=== PATIENT | male | born 1985 | race African-American/Black ===

== ENCOUNTER 2023-09-08 12:20 | Emergency (ER) | payer SELFPAY ==
[2023-09-08] VITALS (11 sets, daily range): BP systolic 164–213; BP diastolic 107–133; PULSE 51–61; RESP 14–18; TEMP 36.8; O2SAT 92–98; BMI 32.1
--- NOTE | 2023-09-08 12:27 | XRR_ITS ---
PROCEDURE INFORMATION: Exam: XR Chest Exam date and time: 09/08/2023 12:34 PM Age: 38 years old Clinical indication: Pain; Angina pectoris; Additional info: Cp TECHNIQUE: Imaging protocol: Radiologic exam of the chest. Views: 1 view. COMPARISON: No relevant prior studies available. FINDINGS: Lungs: Unremarkable. No consolidation. Pleural spaces: Unremarkable. No pleural effusion. No pneumothorax. Heart/Mediastinum: Unremarkable. No cardiomegaly. Bones/joints: Unremarkable. XR/XR chest 1V portable [id number] IMPRESSION: No acute findings.
--- NOTE | 2023-09-08 12:28 | ECG_ITS ---
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 Measurements Intervals [place] Rate: 62 P: 64 ID: 160 QRS: 25 QRSD: 95 T: 30 QT: 386 QTc: 392 Interpretive Statements SINUS RHYTHM WITH SINUS ARRHYTHMIA MINIMAL ST DEPRESSION [0.025+ mV ST DEPRESSION] No previous ECG available for comparison Electronically Signed On 09-09-2023 6:26:39 CDT by Vita Silva M.D. [id number] f
--- NOTE | 2023-09-08 13:17 | ED_ITS ---
HPI - Chest Pain 2 General: Chief Complaint: Chest Pain Stated Complaint: too many energy drinks, chest pain Time Seen by Provider: 09/08/23 12:51 History of Present Illness: 38-year-old -[place] man who pre sents the emergency room with chest pain that started about 5 AM this morning. He says he took a couple of 5-hour energy drinks and then shortly after this started. He says he does not take any medications for blood pressure and he is quite hypertensive on presentation. He says the pain is a pressure that goes into his left armpit and shoulder. No cough. No lower extremity swelling. No calf pain. No shortness of breath. No altered mental status. No focal motor deficits. No headache. No abdominal pain. Review of Systems 2 Narrative: Constitutional symptoms: Negative except as documented in HPI. Skin symptoms: Negative except as documented in HPI. Eye symptoms: Negative except as documented in HPI. ENMT symptoms: Negative except as documented in HPI. Respiratory symptoms: Negative except as documented in HPI. Cardiovascular symptoms: Negative except as documented in HPI. Gastrointestinal symptoms: Negative except as documented in HPI. Genitourinary symptoms: Negative except as documented in HPI. Musculoskeletal symptoms: Negative except as documented in HPI. Neurologic symptoms: Negative except as documented in HPI. Psychiatric symptoms: Negative except as documented in HPI. Endocrine symptoms: Negative except as documented in HPI. Physical Exam 2 Narrative: EXAM NARRATIVE: General: Alert, no acute distress. Skin: Warm, dry. Head: Normocephalic, atraumatic. Neck: Supple, trachea midline. Eye: Extraocular movements are intact. Ears, nose, mouth and throat: mucosa moist. Cardiovascular: Regular, Normal peripheral perfusion. Respiratory: Lungs are clear to auscultation, respirations are non-labored, breath sounds are equal, Symmetrical chest wall expansion. Gastrointestinal: Soft, Nontender, Non distended Musculoskeletal: Normal ROM, no deformity. Neurological: Alert and oriented, No focal neurological deficit observed. Psychiatric: Cooperative, appropriate mood & affect. Course 2 Vital Signs: Vital signs: Vital Signs Temperature 98.2 F 09/08/23 12:24 Pulse Rate 53 L 09/08/23 14:00 Respiratory Rate 17 09/08/23 14:00 Blood Pressure 167/117 09/08/23 14:00 Pulse Oximetry 94 09/08/23 14:00 Oxygen Delivery Me thod Room Air 09/08/23 14:00 MDM - Chest Pain Medical Decision Making Differential diagnosis for patient with chest pain includes but is not limited to and based on the above HPI, review of systems and physical exam: Pneumonia. unstable angina. angina. Acute coronary syndrome / SC. Pulmonary embolism. Costochondritis / musculoskeletal. Pleurisy. Pericarditis. Esophageal spasm. Pancreatis. Cholecystitis. Orders placed to evaluate differential diagnosis based on the above differential, HPI and physical exam EKG: Time 1223. Rate 62. Normal sinus rhythm, No ST-T changes, no ectopy, normal MA & QRS intervals, This was reviewed and interpreted by myself the ER physician at 1225 Chest x-ray: No acute process. No infiltrate. No pneumothorax. This was reviewed and interpreted by myself the ER physician. Lab Review: Laboratory results were reviewed and interpreted by myself the emergency room physician. Lab work is unremarkable. No leukocytosis. No anemia. No renal failure. No elevation in his liver enzymes. Serial troponins are negative. HEART Pathway for Early Discharge in Acute Chest Pain from [email or web address] on 09/08/2023 All calculations should be rechecked by clinician prior to use RESULT SUMMARY: 2 points HEART Pathway Score Low risk 0.9-1.7% 30-day MACE Repeat troponin at 3 hours and if negative, discharge home with outpatient follow-up. INPUTS: History ?> 1 = Moderately suspicious EKG ?> 0 = Normal Age ?> 0 = <45 Risk factors ?> 1 = 1-2 risk factors Initial troponin ?> 0 = <=ormal limit I reviewed the patient's medical record. Reexamination: Patient remained stable. No increased work of breathing. No altered mental status. No focal motor deficits. Assessment and plan: Noncardiac chest pain Accelerated hypertension ?Clonidine for blood pressure here. Recommend he follow with his primary for blood pressure control. - Discharged home - Discussed findings and plan with patient. Answered any questions. - All laboratory values were reviewed and interpreted personally by myself, the ER physician - All imaging was reviewed and interpreted personally by myself, the ER physician. - Evaluation and treatment of this problem were appropriate in the emergency setting Lab Data 09/08/23 13:16 09/08/23 13:16 Radiology Impressions Chest X-Ray 09/08/23 12:27 IMPRESSION: No acute findings. Laboratory Results WBC 5.48 10^3/uL (3.29-11.43) 09/08/23 13:16 RBC 5.66 10^6/uL (3.85-5.65) H 09/08/23 13:16 Hgb 15.40 g/dL (11.27-16.99) 09/08/23 13:16 Hct 47.0 % (37-53) 09/08/23 13:16 MCV 83.0 fl (82-101) 09/08/23 13:16 MCH 27.2 pg (27-33) 09/08/23 13:16 MCHC 32.8 g/dL (30-55) 09/08/23 13:16 RDW 15.5 % (12.1-15.1) H 09/08/23 13:16 Plt Count 273 10^3/cmm (157-399) 09/08/23 13:16 MPV 10.3 fL (7.4-10.4) 09/08/23 13:16 Neut % (Auto) 43.7 % 09/08/23 13:16 Lymph % (Auto) 45.8 % 09/08/23 13:16 Caroline % (Auto) 8.0 % 09/08/23 13:16 Eos % (Auto) 1.6 % 09/08/23 13:16 Baso % (Auto) 0.7 % 09/08/23 13:16 Neut # (Auto) 2.39 10^3/uL (1.8-7.7) 09/08/23 13:16 Lymph # (Auto) 2.5 10^3/uL (0.8-4.8) 09/08/23 13:16 Caroline # (Auto) 0.4 10^3/uL (0.2-0.9) 09/08/23 13:16 Eos # (Auto) 0.1 10^3/uL (0.0-0.8) 09/08/23 13:16 Baso # (Auto) 0.0 10^3/uL (0.0-0.1) 09/08/23 13:16 Nucleated RBC % (auto) 0 % 09/08/23 13:16 Nucleated RBCs # 0.0 /100WBC 09/08/23 13:16 Sodium 142 mmol/L (136-145) 09/08/23 13:16 Potassium 4.1 mmol/L (3.5-5.1) 09/08/23 13:16 Chloride 108 mmol/L (98-107) H 09/08/23 13:16 Carbon Dioxide 22 mmol/L (22-29) 09/08/23 13:16 Anion Gap 16.1 (5-19) 09/08/23 13:16 BUN 7 mg/dL (6-20) 09/08/23 13:16 Creatinine 0.7 mg/dL (0.7-1.2) 09/08/23 13:16 GFR Calculation 151.9 mL/min (90-130) H 09/08/23 13:16 Glucose 95 mg/dL (65-115) 09/08/23 13:16 Calculated Osmolality 292 mOsm/kg (285-295) 09/08/23 13:16 Calcium 8.7 mg/dL (8.5-10.5) 09/08/23 13:16 Total Bilirubin 0.4 mg/dL (0.15-1.2) 09/08/23 13:16 AST 13 U/L (0-40) 09/08/23 13:16 ALT 14 U/L (0-41) 09/08/23 13:16 Alkaline Phosphatase 83 U/L (40-130) 09/08/23 13:16 Troponin T Baseline < 6 ng/L (0-15) 09/08/23 13:16 Troponin T 120 Minute 6.00 ng/L (0-15) 09/08/23 14:14 Delta Troponin T 0.78416 ABS# (0-10) 09/08/23 14:14 Total Protein 6.8 g/dL (6.6-8.7) 09/08/23 13:16 Albumin 4.1 g/dL (3.5-5.2) 09/08/23 13:16 Globulin 2.7 g/dL (1.3-4.6) 09/08/23 13:16 Lipase 19 U/L (13-60) 09/08/23 13:16 All radiology interpretation(s) finalized by discharge Discharge Plan Discharge Patient Disposition: Home Clinical Impression: Non-cardiac chest pain, Accelerated hypertension Condition: Stable Prescriptions: New clonidine HCl 0.1 mg tablet 0.1 mg PO Q8H PRN (Reason: hypertensive emergency) Qty: 20 0RF Rx Instructions: For Systolic >185 diastolic >100 Discharge Orders: Discharge ED (Routine); Ordered 09/08/23 Ordered By: Clair Carvalho Discharge Diet: Usual diet Discharge Activity: Resume usual activity Patient Instructions: Noncardiac Chest Pain (ED) Activity Restrictions/Additional Instructions: You need to keep track of your blood pressures and get follow-up with your primary care provider as you may need to be on blood pressure medications. Please refrain from energy drinks and caffeinated beverages. Thank you for choosing [facility] for your healthcare needs today. Please realize this is an emergency room and that we are providing you with a medical screening exam and this may not be complete and all inclusive of all the testing and or work up that you may need to determine your ailment or severity of your illness. You have been screened and evaluated and felt safe for discharge. Health conditions do change or evolve sometimes and as such it is important that you follow up with your Primary Doctor to be re checked, 3-5 days is a general good time frame for follow up. You are always welcome to return to the ED for re assessment if your symptoms are worsening or you have new concerns Coding Level of Care Code ED Health Screener for Aniyah Matthews
--- NOTE | 2023-09-08 13:32 | PC.NURSE ---
Pt told this nurse he does not want an IV unless absolutely necessary . MD notified.
[2023-09-08 13:41] LABS: Basophils % 0.7 %; Eosinophils # 0.1 10^3/uL (0.0-0.8); Eosinophils % 1.6 %; Lymphocytes # 2.5 10^3/uL (0.8-4.8); Lymphocytes % 45.8 %; Mean Corpuscular HGB Conc 32.8 g/dL (30-55); Mean Corpuscular Hemoglobin 27.2 pg (27-33); Mean Platelet Volume 10.3 fL (7.4-10.4); Monocytes # 0.4 10^3/uL (0.2-0.9); Neutrophils # 2.39 10^3/uL (1.8-7.7); Neutrophils % 43.7 %; Nucleated Red Blood Cells % 0 %; Platelet Count 273 10^3/cmm (157-399); Red Blood Count 5.66 10^6/uL (3.85-5.65); Red Cell Distribution Width 15.5 % (12.1-15.1); White Blood Count 5.48 10^3/uL (3.29-11.43)
[2023-09-08 13:58] LABS: Alanine Aminotransferase 14 U/L (0-41); Albumin Level 4.1 g/dL (3.5-5.2); Alkaline Phosphatase 83 U/L (40-130); Anion Gap 16.1 (5-19); Aspartate Amino Transferase 13 U/L (0-40); Blood Urea Nitrogen 7 mg/dL (6-20); Calcium 8.7 mg/dL (8.5-10.5); Carbon Dioxide 22 mmol/L (22-29); Chloride 108 mmol/L (98-107); Creatinine Clr Calc Pharmacy 174.1657; Globulin 2.7 g/dL (1.3-4.6); Glomerular Filtration Rate 151.9 mL/min (90-130); Glucose 95 mg/dL (65-115); Lipase 19 U/L (13-60); Osmolality Calculated 292 mOsm/kg (285-295); Potassium 4.1 mmol/L (3.5-5.1); Sodium 142 mmol/L (136-145); Total Bilirubin 0.4 mg/dL (0.15-1.2); Total Protein 6.8 g/dL (6.6-8.7)
[2023-09-08 13:59] LABS: Troponin(5th) Baseline < 6 ng/L (0-15)
--- NOTE | 2023-09-08 14:28 | ECG_ITS ---
[facility] Test Date: 2023-09-08 Pat Name: Eric Barfield Department: Room: Gender: Male Lead Technical Architect: : 1985 Requested By: Anna Marie Pearce Order Number: [id number] Anthony MD: Vita Silva M.D. Measurements Intervals [place] Rate: 52 P: 55 [place]: 139 QRS: 19 QRSD: 88 T: 10 QT: 390 QTc: 365 Interpretive Statements SINUS BRADYCARDIA POSSIBLE LEFT ATRIAL ENLARGEMENT [-0.1mV P-WAVE IN V1/V2] Compared to ECG 09/08/2023 12:23:43 Sinus rhythm no longer present Sinus arrhythmia no longer present ST (T wave) deviation no longer present Electronically Signed On 09-09-2023 6:36:52 CDT by Vita Silva M.D. [id number]
[2023-09-08 14:37] LABS: Troponin 5 2HR Delta 0.00001 ABS# (0-10)
[2023-09-08] MEDS: cloNIDine 0.1 mg Tablet PO (15:17)
== END 2023-09-08 15:45 | disposition home or self-care (01) ==
PROVIDERS: Emergency Medicine; Emergency Provider Emergency Medicine
DX: R07.89 Other chest pain (principal); I10 Essential (primary) hypertension
CPT/HCPCS: 36415; 71045; 80053; 83690; 84484; 85025; 93005; 99285